=== PATIENT | female | born 1940 | race Caucasian/White ===

== ENCOUNTER 2017-06-05 11:45 | Emergency (ER) | payer BC ==
[2017-06-05 14:22] LABS: #Basophils 0.1 thou/uL (0.0-0.2); #Eosinphils 0.1 thou/uL (0.0-0.7); #Lymphocytes 1.1 thou/uL (1.20-3.40); #Monocytes 0.4 thou/uL (0.11-0.59); #Neutrophils 7.2 thou/uL (1.40-6.50); %Basophils 0.7 % (0.0-1.0); %Eosinophils 0.7 % (0.0-10.0); %Lymphocytes 12.6 % (21.0-51.0); %Monocytes 4.6 % (0.0-10.0); %Neutrophils 81.4 % (42.0-75.0); Hemoglobin 13.6 g/dL (12.0-16.0); Mean Corpuscular HGB CONC 32.3 g/dL (32.0-36.0); Mean Corpuscular Hemoglobin 31.6 pg (27.0-31.0); Mean Corpuscular Volume 97.9 fl (81.0-99.0); Mean Platelet Volume 6.8 fL (7.4-10.4); Platelet Count 256 thou/uL (130-400); RBC Distribution Width 11.4 % (11.5-14.5); Red Blood Cell (RBC) Count 4.31 mill/uL (4.20-5.40); White Blood Cell (WBC) Count 8.8 thou/uL (4.8-10.8)
[2017-06-05] MEDS ORDERED: ISOVUE-370 76%-LOCM 1 ML ONE (14:29)
[2017-06-05 14:30] LABS: Prothrombin Time 12.8 SEC (12.0-14.7)
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
[2017-06-05 14:48] LABS: Troponin I Less than 0.010 ng/mL (< 0.028)
[2017-06-05 14:51] LABS: CKMB 16.7 ng/mL (0-6.6)
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
[2017-06-05] MEDS ORDERED: methylPREDNISolone Sod Succ/PF 125 MG/2 ML VIAL ONE (14:54)
[2017-06-05] MEDS ORDERED: diphenhydrAMINE 50 MG/ML VIAL ONE (14:54)
[2017-06-05] MEDS ORDERED: Famotidine/PF 20 mg/2ml Vial ONE (14:54)
[2017-06-05] MEDS ORDERED: Water For Injection,Sterile 20 ML ONE (14:55)
[2017-06-05 15:32] LABS: Bilirubin Small (Negative); Blood, Urine Small (Negative); Clarity CLEAR (Clear); Glucose, Urine (Dipstick) Negative (Negative); Leukocyte Negative (Negative); Nitrite Negative (Negative); Protein, Urine (Dipstick) Negative (Neg-Trace); Specific Gravity, Urine 1.012 (1.002-1.036); Urobilinogen 0.2 mg/dL (0.2-1.0)
[2017-06-05 15:34] LABS: Bacteria/HPF None Seen HPF (None Seen); Hyaline Casts/LPF 0-3 HYALINE CAST LPF (0-3 Hyaline); Squamous Epithelial 0-3 HPF (0-3); WBC/HPF 0-3 HPF (0-3)
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
[2017-06-05 16:10] LABS: ALT (SGPT) 54 U/L (8-55); AST (SGOT) 55 U/L (5-34); Albumin 4.3 g/dL (3.4-4.8); Alkaline Phosphatase 76 U/L (40-150); Anion Gap 13 mmol/L (10-20); BUN (Urea Nitrogen) 21 mg/dL (9.8-20.1); Bilirubin, Total 0.5 mg/dL (0.2-1.2); Calc. Creatinine Clearance 0 mL/min (70-130); Calcium 9.8 mg/dL (7.8-10.44); Carbon Dioxide 25 mmol/L (23-31); Chloride 105 mmol/L (98-107); Estimated GFR-MDRD 75; Globulin 2.4 g/dL (2.4-3.5); Glucose 115 mg/dL (83-110); Potassium 4.1 mmol/L (3.5-5.1); Protein, Total 6.7 g/dL (6.0-8.3); Sodium 139 mmol/L (136-145)
== END 2017-06-05 17:04 | disposition home or self-care (01) ==
LOC: ERS 11:45
DX: M54.2 Cervicalgia (principal); V43.52XA Car driver injured in collision with other type car in traffic accident, initial encounter
CPT/HCPCS: 36415; 70450; 71045; 72125; 74177; 80053; 81003; 81015; 82553; 84484; 85025; 85610; 96361; 96374; 96375; J1200; J2930; S0028

== ENCOUNTER 2017-07-05 15:06 | Outpatient (CLI) | payer BC ==
--- NOTE | 2017-07-05 16:28 | RAD ---
CERVICAL SPINE 3 VIEWS: Date: 07/05/17 HISTORY: Neck pain. Fracture. COMPARISON: 06/05/17. FINDINGS: Disc space narrowing at the C5-6 level and minimal degenerative spondylolisthesis at the C4-5 level a re similar in appearance to the prior study. Osteophytosis is present throughout the vertebral bodies and facets. No abnormal translational motion is evident upon flexion or extension. Cervicothoracic j unction is intact. IMPRESSION: Cervical spondylosis, most pronounced at the C4-5 and C5-6 levels. POS: [facility]
== END 2017-07-05 15:07 | disposition home or self-care (01) ==
LOC: TBSIIMAG 15:06
PROVIDERS: ATTEND Neurological Surgery
DX: M54.2 Cervicalgia (principal); M47.892 Other spondylosis, cervical region
CPT/HCPCS: 72040